=== PATIENT | female | born 1950 | race Caucasian/White ===

== ENCOUNTER 2023-04-29 14:15 | Emergency (ER) | payer OTHER, MEDICARE ==
[~2023-04-29] VITALS: Ht 170.2 cm; Wt 74.4 kg
[2023-04-29 14:20] VITALS: BP 126/73
== END 2023-04-29 16:16 | disposition home or self-care (01) ==
LOC: ER 14:15
DX: S20.211A Contusion of right front wall of thorax, initial encounter (principal); W01.0XXA Fall on same level from slipping, tripping and stumbling without subsequent striking against object, initial encounter; Z88.5 Allergy status to narcotic agent; Z91.010 Allergy to peanuts; Z91.018 Allergy to other foods
CPT/HCPCS: 71046; 99283-25